=== PATIENT | male | born 1960 | race Caucasian/White ===

== ENCOUNTER 2022-04-20 03:44 | Emergency (ER) | payer BC ==
[2022-04-20 04:23] LABS: Urine Blood Trace-intact (Negative); Urine Glucose Negative (Negative); Urine Protein Trace (Negative); Urine Specific Gravity 1.015 (1.005-1.030); Urine pH 5.5 (5.0-7.0)
--- NOTE | 2022-04-20 04:37 | ER ---
Nurse's Notes [facility] Name: Hector Cote Age: 61 yrs Sex: Male : 1960 Arrival Date: 04/20/2022 Time: 03:49 Bed 7 Private MD: Diagnosis: URINARY RETENTION Presentation: 04/20 04:05 Chief complaint: Patient states: he has not been able to urinate since 2329 last night bb and is in a lot of pain. Coronavirus screen: At this time, the client does not indicate any symptoms associated with coronavirus-19. Ebola Screen: No symptoms or risks identified at this time. Initial Sepsis Screen: Does the patient meet any 2 criteria? No. Patient's initial sepsis screen is negative. Does the patient have a suspected source of infection? No. Patient's initial sepsis screen is negative. Risk Assessment: Do you want to hurt yourself or someone else? Patient reports no desire to harm self or others. Onset of symptoms was April 19, 2022. 04:05 Method Of Arrival: Ambulatory bb 04:05 Acuity: PATIENCE 3 bb Historical: - Allergies: 04:08 No Known Allergies; bb - Home Meds: 04:08 atorvastatin oral [Active]; tamsulosin oral [Active]; testosterone injections [Active]; bb Vitamin D Oral [Active]; - PMHx: 04:08 Hypercholesterolemia; Urinary retention; bb - Immunization history:: Client reports having NOT received the Covid vaccine. - Social history:: Smoking status: Patient reports the use of cigarette tobacco products. Screenin:11 Abuse screen: Denies threats or abuse. Nutritional screening: No deficits noted. bb Tuberculosis screening: No symptoms or risk factors identified. Fall Risk None identified. Assessment: 04:11 General: Appears in no apparent distress. uncomfortable, Behavior is cooperative, bb anxious. Pain: Complains of pain in pelvis Pain currently is 10 out of 10 on a pain scale. Neuro: Level of Consciousness is awake, alert, obeys commands, Oriented to person, place, time, situation. Cardiovascular: Capillary refill < 3 seconds Patient's skin is warm and dry. Respiratory: Respiratory effort is even, unlabored, Respiratory pattern is regular. GI: Abdomen is non-distended, Reports lower abdominal pain. : Reports inability to void, since 2330 last night. Derm: Skin is pink, warm \T\ dry. Musculoskeletal: Circulation, motion, and sensation intact. 05:01 Reassessment: Patient is alert, oriented x 3, equal unlabored respirations, skin bb warm/dry/pink. pt verbalized understanding of and agrees to plan of care discharge instructions given pt ambulated with steady gait to exit Patient states feeling better. Patient states symptoms have improved. Vital Signs: 04:05 BP 138 / 74; Pulse 87; Resp 18 S; Temp 98.6(O); Pulse Ox 96% on R/A; Weight 107.05 kg bb (R); Height 5 ft. 10 in. (177.80 cm) (R); Pain 10/10; 05:02 BP 111 / 71; Pulse 75; Resp 16 S; Pulse Ox 94% ; Pain 0/10; bb 04:05 Body Mass Index 33.86 (107.05 kg, 177.80 cm) bb ED Course: 03:49 Patient arrived in ED. ja2 04:00 Maurer cath inserted, using sterile technique, 16 Fr., by mo, balloon inflated, to bb gravity drainage, returned 1000 mLs. Patient tolerated well. 04:05 Ayala Lewis MD is Attending Physician. sp3 04:08 Triage completed. bb 04:08 Arm band placed on Patient placed in an exam room, on a stretcher, on pulse oximetry. bb 04:11 Patient has correct armband on for positive identification. Placed in gown. Bed in low bb position. Call light in reach. Side rails up X 1. Warm blanket given. 04:35 Wing Lozada MD is Referral Physician. sp3 05:02 switched to leg bag. bb 05:03 No provider procedures requiring assistance completed. Patient did not have IV access bb during this emergency room visit. Administered Medications: No medications were administered Medication: 04:11 VIS not applicable for this client. bb Outcome: 04:36 Discharge ordered by . sp3 05:03 Discharged to home ambulatory. bb 05:03 Condition: stable 05:03 Discharge instructions given to patient, Instructed on discharge instructions, follow up and referral plans. medication usage, Demonstrated understanding of instructions, follow-up care, medications, Prescriptions given X 1. 05:03 Patient left the ED. bb Signatures: Juani Randolph RN RN bb Ayala Lewis MD MD sp3 Disha Shannon
--- NOTE | 2022-04-20 04:37 | EDPHYS ---
Physician Documentation [facility] Name: Hector Cote Age: 61 yrs Sex: Male : 1960 Arrival Date: 04/20/2022 Time: 03:49 Bed 7 Private MD: ED Physician Ayala Lewis HPI: 04/20 04:31 This 61 yrs old Male presents to ER via Ambulatory with complaints of Urinary Problem. sp3 04:31 61-year-old male with history of hyperlipidemia and enlarged prostate currently on sp3 Flomax presents to the ED for urinary retention x12 hours. Patient states that he ran out of his Flomax and [facility] "messed up his prescription and did not give him his refills" and yesterday into today he has been unable to urinate. He denies any other symptoms including fever, abdominal pain, flank pain, nausea, vomiting, diarrhea, rash, genital swelling, urethral discharge, testicular pain, or any other symptoms related to the genitourinary system on ROS.. Historical: - Allergies: 04:08 No Known Allergies; bb - Home Meds: 04:08 atorvastatin oral [Active]; tamsulosin oral [Active]; testosterone injections [Active]; bb Vitamin D Oral [Active]; - PMHx: 04:08 Hypercholesterolemia; Urinary retention; bb - Immunization history:: Client reports having NOT received the Covid vaccine. - Social history:: Smoking status: Patient reports the use of cigarette tobacco products. ROS: 04:32 Constitutional: Negative for fever, chills, and weight loss, Eyes: Negative for injury, sp3 pain, redness, and discharge, ENT: Negative for injury, pain, and discharge, Neck: Negative for injury, pain, and swelling, Cardiovascular: Negative for chest pain, palpitations, and edema, Respiratory: Negative for shortness of breath, cough, wheezing, and pleuritic chest pain, Abdomen/GI: Negative for abdominal pain, nausea, vomiting, diarrhea, and constipation, Back: Negative for injury and pain, MS/Extremity: Negative for injury and deformity, Skin: Negative for injury, rash, and discoloration, Neuro: Negative for headache, weakness, numbness, tingling, and seizure, Psych: Negative for depression, anxiety, suicide ideation, homicidal ideation, and hallucinations, Allergy/Immunology: Negative for hives, rash, and allergies, Endocrine: Negative for neck swelling, polydipsia, polyuria, polyphagia, and marked weight changes. 04:32 All other systems are negative. Exam: 04:33 Constitutional: This is a well developed, well nourished patient who is awake, alert, sp3 and in no acute distress. Head/Face: Normocephalic, atraumatic. Chest/axilla: Normal chest wall appearance and motion. Nontender with no deformity. No lesions are appreciated. Cardiovascular: Regular rate and rhythm with a normal S1 and S2. No gallops, murmurs, or rubs. Normal PMI, no JVD. No pulse deficits. Respiratory: Lungs have equal breath sounds bilaterally, clear to auscultation and percussion. No rales, rhonchi or wheezes noted. No increased work of breathing, no retractions or nasal flaring. Abdomen/GI: Soft, non-tender, with normal bowel sounds. No distension or tympany. No guarding or rebound. No evidence of tenderness throughout. Male : Normal genitalia with no discharge or lesions. Skin: Warm, dry with normal turgor. Normal color with no rashes, no lesions, and no evidence of cellulitis. 04:33 : Distended bladder which was relieved after Maurer insertion by nursing staff. Maurer insertion, approximately 950 mL to 1 L of urine was obtained. No clamping was necessary. Patient felt immediate relief.. Vital Signs: 04:05 BP 138 / 74; Pulse 87; Resp 18 S; Temp 98.6(O); Pulse Ox 96% on R/A; Weight 107.05 kg bb (R); Height 5 ft. 10 in. (177.80 cm) (R); Pain 10/10; 05:02 BP 111 / 71; Pulse 75; Resp 16 S; Pulse Ox 94% ; Pain 0/10; bb 04:05 Body Mass Index 33.86 (107.05 kg, 177.80 cm) bb MDM: 04:08 Patient medically screened. sp3 04:34 Data reviewed: vital signs, nurses notes. ED course: Discharge patient with Maurer leg sp3 bag and refill his Flomax. Patient will follow up with urology which referral was given. Patient or stands that he can always return here if he is unable to get an appointment. No antibiotics indicated as urine was negative.. 04/20 04:24 Order name: Urine Dipstick-Ancillary EDMS 04/20 04:08 Order name: Maurer; Complete Time: 04:14 sp3 04/20 04:08 Order name: Maurer Leg Bag; Complete Time: 04:14 sp3 04/20 04:08 Order name: Urine Dipstick-Ancillary (obtain specimen); Complete Time: 04:14 sp3 Administered Medications: No medications were administered Disposition Summary: 04/20/22 04:36 Discharge Ordered Location: Home sp3 Condition: Stable sp3 Diagnosis - URINARY RETENTION sp3 Followup: sp3 - With: Wing Lozada MD - When: Upon discharge from the Emergency Department - Reason: Recheck today's complaints, Continuance of care Discharge Instructions: - Discharge Summary Sheet sp3 - Acute Urinary Retention, Male sp3 Forms: - Medication Reconciliation Form sp3 - Thank You Letter sp3 - Antibiotic Education sp3 - Prescription Opioid Use sp3 Prescriptions: - TAMSULOSIN 0.4 MG - take 1 tablet by ORAL route once daily; 30 tablet; Refills: 0, Product sp3 Selection Permitted Signatures: Juani Randolph, RN RN Ayala Daily MD MD sp3
[2022-04-22 05:13] VITALS: TEMP 98.6
[2022-04-22 05:14] VITALS: BP 111/71; O2SAT 94
== END 2022-04-20 05:03 | disposition home or self-care (01) ==
LOC: ER 03:44
DX: R33.9 Retention of urine, unspecified (principal); E78.00 Pure hypercholesterolemia, unspecified
CPT/HCPCS: 51702; 81003; 99284